=== PATIENT | male | born 2000 | race Caucasian/White ===

== ENCOUNTER 2024-12-24 02:24 | Emergency (ER) | payer OTHER ==
--- OUTSIDE RECORDS SUMMARY | 2024-12-24 02:27 | XMS REPORT | Continuity of Care Document ---
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 Name Role Phone PCP, NO Primary Care Physician Unavailab KEE Munoz Attending Clinician Unavailab NIKKI Orozco Attending Clinician Unavailable JD MORA Attending Clinician Unavailable Problems Condition Name Condition Details Condition Category Status Onset Date Resolution Date Last Treatment Date Treating Clinician Comments Source Hypersensi tivity reaction Hypersensi tivity reaction Problem Active 2017-10 00:00: [address] [facility] (LUF/LI V/SA) Social History Smoking Status Start Date Stop Date Source Never smoker [facility] (LUF/DAVID/SA) Vital Signs Vital Name Observation Time Observation Value Comments S ource Height 2018-08-17 07:02:00 72 in [facility] S t [facility] (LUF/DAVID/SA) Weight Measured 2018-08-17 07:02:00 250 lbs [facility] (LUF/DAVID/SA) BMI (Body Mass Index) 2018-08-17 07:02:00 34.[address] [facility] Body Temperature 2018-08-17 07:02:00 98.3 F [facility] (LUF/DAVID/SA) Pulse Rate 2018-08-17 07:02:00 93 /min [facility] (LUF/ADVID/SA) Respiratory Rate 2018-08-17 07:02:00 18 /min [facility] (LUF/DAVID/SA) O2% BldC Oximetry 2018-08-17 07:02:00 97 % [facility] (LUF/DAVID/SA) BP Systolic 2018-08-17 07:02:00 118 mm[Hg] [facility] (LUF/DAVID/SA) BP Diastolic 2018-08-17 07:02:00 73 mm[Hg] [facility] (LUF/DAVID/SA) Encounters Start Date/Time End Date/Time Encounter Type Admission Type Attending [facility] Facility Care Department Encounter ID Source 2024-11-15 19:26:00 2024-11-15 20:51:00 Emergency ER KEE RODRIGUEZ [facility] [id number] [facility] 2024-11-14 22:21:00 2024-11-15 01:06:00 Emergency ER NIKKI SPANN [facility] [id number] [facility] 2018-08-17 06:53:00 2018-08-17 08:40:00 Inpatient JD MORA [facility], [address] [facility] [place] [address] [facility] [id number] [facility] (LUF/LI V/SA)
[2024-12-24 03:10] LABS: Specific Gravity 1.017 (1.005-1.030); Sqamous Epithelial <5 /HPF (None Seen); Urine Bacteria 20-50 /HPF (<20); Urine Bilirubin 1+ (Negative); Urine Blood 2+ (Negative); Urine Clarity Extremely Turbid (Clear); Urine Color Dark-Yellow (Yellow); Urine Culture Reflex Order REFLEXED; Urine Glucose NEGATIVE (Negative); Urine Ketones 3+ (Negative); Urine Micro Reflex YN NO BILL MICROSCOPIC; Urine Mucus 1+ /HPF (None Seen); Urine Nitrite NEGATIVE (Negative); Urine Protein 1+ (Negative); Urine RBC >50 /HPF (None Seen); Urine Urobilinogen 2+ (Normal); Urine WBC >50 /HPF (<5); Urine WBC Clump Rare /HPF (None Seen); Urine pH 5.5 (5.0-7.0)
[2024-12-24] MEDS ORDERED: CEFTRIAXONE 1000 MG/VIAL ONE (03:14)
[2024-12-24] MEDS ORDERED: ONDANSETRON 4 MG/2 ML VIAL ONE ×2 (03:15→03:18)
[2024-12-24] MEDS ORDERED: ACETAMINOPHEN 500 MG TAB ONE (03:15)
[2024-12-24] MEDS ORDERED: IBUPROFEN 400 MG TAB ONE (03:15)
[2024-12-24] MEDS ORDERED: NA CHLORIDE 0.9% 3,000 ML ONE (03:16)
[2024-12-24] MEDS ORDERED: METRONIDAZOLE 500mg IVPB 500 MG/100 ML BAG IV ONE (03:16)
[2024-12-24] MEDS ORDERED: METOCLOPRAMIDE 10 MG/2mL INJ ONE (03:16)
[2024-12-24 03:55] LABS: Absolute Basophils 0.1 K/uL (0-0.5); Absolute Monocytes 2.4 K/uL (0.1-1.3); Absolute Neutrophil 20.9 K/uL (1.8-8.0); Basophils % 0.2 % (0-1.3); Hematocrit 39.1 % (39.6-49.0); Hemoglobin 13.1 g/dL (13.6-17.9); Lymphocytes % 4.2 % (15.3-44.8); MCH 29.2 pg (27.0-35.0); MCHC 33.4 g/dL (32.0-36.0); MCV 87.4 fL (80-100); MPV 8.6 fL (7.6-11.3); Neutrophils % 85.6 % (41.7-73.7); Nucleated Red Blood Cells % 0.1 % (0-0); Platelets 229 thou/uL (152-406); RBC Red Blood Cell Count 4.48 M/uL (4.33-5.43); Red Cell Distribution Width 12.7 % (12.1-15.2)
[2024-12-24 04:08] LABS: PT Prothrombin Time 16.2 SECONDS (10-13.0); PTT, Activated Partial Thromb 33.4 SECONDS (27.2-37.4); Protime INR 1.45
[2024-12-24 04:15] LABS: Albumin 3.4 g/dL (3.4-5.0); Albumin/Globulin Ratio 0.7 (1.1-1.8); Anion Gap 13.2 mEq/L (5.0-15.0); Bilirubin Total 3.1 mg/dL (0.2-1.0); Globulin 4.7 g/dL (2.3-3.5); Potassium 3.2 mEq/L (3.5-5.1); Protein, Total 8.1 g/dL (6.4-8.2)
[2024-12-24 04:16] LABS: Influenza A Ag Negative; Influenza B Ag Negative; SARS-CoV-2 Antigen Rapid Res Negative (Negative)
[2024-12-24 04:24] LABS: Thyroid Stimulating Hormone 1.93 uIU/mL (0.358-3.740)
[2024-12-24 04:39] LABS: Band Neutrophils 20 % (0-1); Blood Morphology Comment NOT SEEN (NOT SEEN); Differential Total Cells Count 100; Lymphocytes 4 % (15-42); Monocytes 3 % (0-10); Platelet Estimate ADEQ; Reactive Lymphocytes 1 %; Segmented Neutrophils 72 % (40-80)
--- NOTE | 2024-12-24 06:02 | RAD REPORT ---
EXAM: Chest Abdomen Pelvis W Cont CLINICAL HISTORY: abdominal pain COMPARISON: None Available. TECHNIQUE: CT of the chest, abdomen and pelvis performed following the administration of IV contrast. No oral contrast. This exam was performed according to our departmental dose-optimization program, which includes automated exposure control, adjustment of the mA and/or kV according to patient size a nd/or use of iterative reconstruction technique. FINDINGS: Chest: Thyroid: No abnormalities of the visualized thyroid gland. Great Vessels: Great vessels have normal anatomic configuration. Thoracic Aorta: No aneurysm. Contrast bolus is not optimized for assessment of the thoracic aorta. Pulmonary arteries: The main pulmonary artery is not dilated. Contrast bolus is not optimized for ass essment of the pulmonary arteries. Heart: No pericardial effusion. No significant coronary artery calcifications. Lymph Nodes: No enlarged mediastinal, hilar, or axillary lymph nodes identified. Esophagus: No abnormalities of the esophagus identified Other: No additional findings. Lungs: No airspace opacities identified. Pleura: No pleural effusion or pneumothorax. Trachea/Airways: No abnormalities of the visualized trachea or airways. Abdomen: Liver: Normal contour with mild diffuse decreased density and minimal sparing adjacent to the gallbla dder. No intrahepatic mass or biliary dilatation. Gallbladder: No calcified gallstones. Spleen, Pancreas, and Adrenal Glands: Spleen is enlarged. Pancreas and adrenal glands are unremarka ble. Kidneys: No suspicious mass. There is mild left hydronephrosis and minimal hydroureter without ob structing calculus. There may also be some mild right periureteral fat stranding without significant right hydronephrosis. Exam is slightly limited due to motion artifact. Vasculature: The aorta and IVC have normal caliber and position. Stomach: The stomach and duodenum have normal course. Other: No free intraperitoneal air. No free fluid or lymphadenopathy. Pelvis: Bladder: Urinary bladder is unremarkable. Bowel: No dilated loops of large or small bowel.No acute inflammatory changes. Appendix: Normal appendix. Pelvis: No suspicious mass. Bones: No destructive bone lesions identified. IMPRESSION: 1. Mild left hydronephrosis and minimal hydroureter without obstructing calculus. There may also be some mild right periureteral fat stranding without significant right hydronephrosis. Findings could be due to recently passed calculus or infection. Correlate with urinalysis. 2. Hepatic steatosis. 3. Splenomegaly. Electronically signed by: Dee Rincon MD 12/24/2024 05:57 AM CDT RP Due to temporary technical issues with the PACS/Level 3 [employer] reporting system, reports are being mag d by the in-house radiologist without review as a courtesy to ensure prompt reporting the interpreting radiologist is fully responsible for the content of the report. Transcribed Date/Time: 12/24/2024 6:01 AM
--- NOTE | 2024-12-24 07:03 | ER ---
Nurse's Notes [facility] Name: Sanju John Age: 24 yrs Sex: Male : 2000 Arrival Date: 12/24/2024 Time: 02:24 Bed 3 Private MD: Diagnosis: Pyelonephritis acute;Severe sepsis without septic shock Presentation: 12/24 02:47 Chief complaint: Patient states: dehydrated, throbbing headache, sweating, or freezing, vc1 vomiting, body aches, pain with urination. Coronavirus screen: Client denies travel out of the [place] in the last 14 days. chills, fatigue, fever, headache, muscle pain, vomiting. Client presents with at least one sign or symptom that may indicate coronavirus-19. Ebola Screen: Patient negative for fever greater than or equal to 101.5 degrees Fahrenheit, and additional compatible Ebola Virus Disease symptoms Patient denies exposure to infectious person. Patient denies travel to an Ebola-affected area in the 21 days before illness onset. No symptoms or risks identified at this time. Initial Sepsis Screen: Does the patient meet any 2 criteria? Temp <36.0*C (96.8*F)) or > 38.3*C (100.9*F). HR > 90 bpm. Yes Does the patient have a suspected source of infection? No. Patient's initial sepsis screen is negative. Risk Assessment: Do you want to hurt yourself or someone else? Patient reports no desire to harm self or others. Onset of symptoms was December 21, 2024. 02:47 Method Of Arrival: Ambulatory vc1 02:47 Acuity: DUYEN 3 vc1 Triage Assessment: 02:58 General: Appears in no apparent distress. uncomfortable, obese, well developed, vc1 Behavior is calm, cooperative, appropriate for age. Pain: Complains of pain in headache and pain with urination Pain does not radiate. Pain currently is 5 out of 10 on a pain scale. EENT: No deficits noted. No signs and/or symptoms were reported regarding the EENT system. Neuro: Level of Consciousness is awake, alert, obeys commands, Oriented to person, place, time, situation, Appropriate for age. Cardiovascular: Heart tones S1 S2 present Capillary refill < 3 seconds Patient's skin is warm and dry. Rhythm is sinus tachycardia. Respiratory: Airway is patent Respiratory effort is even, unlabored, Respiratory pattern is regular, symmetrical, Breath sounds are clear bilaterally. GI: No deficits noted. No signs and/or symptoms were reported involving the gastrointestinal system. : Urine is cloudy, Reports pain with urination. Derm: Skin is intact, is healthy with good turgor, Skin is dry, Skin is normal, Skin temperature is warm. Musculoskeletal: Circulation, motion, and sensation intact. Range of motion: intact in all extremities. Historical: - Allergies: 02:50 No Known Allergies; vc1 - Home Meds: 02:50 None [Active]; vc1 - PMHx: 02:50 None; vc1 - PSHx: 02:50 None; vc1 - Immunization history:: Client reports having NOT received the Covid vaccine. Flu vaccine is not up to date. - Infectious Disease History:: Denies. - Social history:: Smoking status: Patient denies any tobacco usage or history of. - Family history:: not pertinent. Screenin:50 [facility] ED Fall Risk Assessment (Adult) History of falling in the last 3 months, vc1 including since admission No falls in past 3 months (0 pts) Confusion or Disorientation No (0 pts) Intoxicated or Sedated No (0 pts) Impaired Gait No (0 pts) Mobility Assist Device Used No (0 pt) Altered Elimination Yes (1 pt) Score/Fall Risk Level 0 - 2 = Low Risk Oriented to surroundings, Maintained a safe environment, Educated pt \T\ family on fall prevention, incl call for assistance when getting out of bed. Abuse screen: Denies threats or abuse. Nutritional screening: No deficits noted. Tuberculosis screening: No symptoms or risk factors identified. Assessment: 03:15 General: Appears in no apparent distress. uncomfortable, Behavior is calm, cooperative, dd2 appropriate for age. Pain: Complains of pain in HEAD Pain does not radiate. Pain currently is 6 out of 10 on a pain scale. Neuro: Goodwin Agitation-Sedation Scale (RASS): 0 - Alert and Calm Level of Consciousness is awake, alert, obeys commands, Oriented to person, place, time, situation, Appropriate for age. Cardiovascular: Heart tones S1 S2 present Patient's skin is warm and dry. Respiratory: Airway is patent Respiratory effort is even, unlabored, Respiratory pattern is regular, symmetrical, Breath sounds are clear bilaterally. GI: No deficits noted. No signs and/or symptoms were reported involving the gastrointestinal system. Abdomen is non-distended, obese, Abd is soft and non tender X 4 quads. : Reports burning with urination, pain with urination. EENT: No deficits noted. No signs and/or symptoms were reported regarding the EENT system. Derm: No deficits noted. No signs and/or symptoms reported regarding the dermatologic system. Musculoskeletal: No deficits noted. No signs and/or symptoms reported regarding the musculoskeletal system. Circulation, motion, and sensation intact. Range of motion: intact in all extremities. 04:20 Reassessment: Patient and/or family updated on plan of care and expected duration. Pain ha1 level reassessed. Patient is alert, oriented x 3, equal unlabored respirations, skin warm/dry/pink. Patient states feeling better. Patient states symptoms have improved. 10:00 General: Assumed care of patient at this time. Pt resting with eyes closed, cm10 respirations even and unlabored. Pt remains on continuous cardiac monitoring. No needs at this time. . 10:32 Reassessment: Patient and/or family updated on plan of care and expected duration. Pain cm10 level reassessed. Patient is alert, oriented x 3, equal unlabored respirations, skin warm/dry/pink. Vital Signs: 02:47 BP 116 / 68; Pulse 126; Resp 18; Temp 103.1; Pulse Ox 96% ; Weight 165.11 kg; Height 6 vc1 ft. 2 in. ; Pain 5/10; 05:26 BP 93 / 50; Pulse 97; Resp 17; Temp 99.4(O); Pulse Ox 98% on R/A; dd2 06:11 BP 109 / 53; Pulse 92; Resp 16; Pulse Ox 97% on R/A; dd2 10:00 BP 114 / 66; Pulse 102; Resp 19; Pulse Ox 98% ; cm10 10:29 Temp 98.6(O); cm10 02:47 Body Mass Index 46.73 (165.11 kg, 187.96 cm) vc1 02:47 Pain Scale: Adult vc1 Dutton Coma Score: 03:15 Eye Response: spontaneous(4). Motor Response: obeys commands(6). Verbal Response: dd2 oriented(5). Total: 15. 06:56 Eye Response: spontaneous(4). Motor Response: obeys commands(6). Verbal Response: sp4 oriented(5). Total: 15. ED Course: 02:28 Patient arrived in ED. [id number] 02:34 Haroon Tang MD is Attending Physician. sp4 02:50 Triage completed. vc1 02:50 Arm band placed on right wrist. vc1 03:01 Patient has correct armband on for positive identification. Bed in low position. Call vc1 light in reach. 03:09 Blood Culture Adult (2) Sent. ha1 03:09 CBC with Diff Sent. ha1 03:09 CMP Sent. ha1 03:09 Lactate w/ 2H reflex if indic. Sent. ha1 03:09 Protime (+inr) Sent. ha1 03:09 Ptt, Activated Sent. ha1 03:15 Client placed on continuous cardiac and pulse oximetry monitoring. NIBP monitoring dd2 applied. Door closed. Noise minimized. Pillow given. Verbal reassurance given. 03:15 No provider procedures requiring assistance completed. Initial lab(s) drawn, by ED dd2 staff, sent to lab. Patient maintains SpO2 saturation greater than 95% on room air. 03:25 Inserted saline lock: 20 gauge in left antecubital area, using aseptic technique. Blood mm11 collected. Flushed with 10 mL NS. 03:26 COVID-19 Ag + Flu A+B Ag Sent. mm11 04:40 CT Chest, Abdomen, Pelvis - W/Contrast In Process Unspecified. EDMS 05:10 KRISTIE MICHAEL, RN is Primary Nurse. dd2 07:02 Edin Vallejo is Hospitalizing Provider. sp4 07:24 Primary Nurse role handed off by KRISTIE MICHAEL, ASHLEE bp 07:24 Umesh Garcia, ASHLEE is Primary Nurse. bp 08:17 Attending Physician role handed off by Haroon Tang MD ec2 08:17 Moshe Mcguire MD is Attending Physician. ec2 08:26 initiated transfer to [facility]. bd 10:22 pt accepted in transfer to [facility] rm [address] Guerra admin approval given bd by Pat Walters rn. 10:31 Provided Education on: Need for transfer. Report given to ASHLEE Ceja at [facility]. cm10 10:31 Patient transferred, IV remains in place. cm10 11:03 Report given to Pb with [facility] who assumes care of patient. pt leaving cm10 A\T\Ox4. Administered Medications: 03:35 Drug: Acetaminophen PO 1000 mg PO once Route: PO; dd2 04:05 Follow up: Response: No adverse reaction dd2 03:35 Drug: Ondansetron IVP 8 mg IVP once; over 2 minutes Route: IVP; Site: left antecubital; dd2 03:50 Follow up: Response: No adverse reaction dd2 03:35 Drug: metoCLOPramide IVP 10 mg IVP once; over 1 to 2 minutes Route: IVP; Site: left dd2 antecubital; 03:50 Follow up: Response: No adverse reaction dd2 03:35 Drug: Rocephin - Rocephin (cefTRIAXone) IVPB 1 grams IVPB once over 30 mins; (mix in 50 dd2 mL NS) Route: IVPB; Infused Over: 30 mins; Site: left antecubital; 04:05 Follow up: Response: No adverse reaction; IV Status: Completed infusion; IV Intake: [id number] 03:35 Drug: metroNIDAZOLE IVPB 500 mg 100 ml IVPB at 200 ml/hr once over 30 mins Volume: 100 dd2 ml; Route: IVPB; Rate: 200 ml/hr; Infused Over: 30 mins; Site: left antecubital; 04:05 Follow up: IV Status: Completed infusion; IV Intake: 100ml dd2 03:36 Drug: Ibuprofen PO 800 mg PO once Route: PO; dd2 04:06 Follow up: Response: No adverse reaction dd2 03:36 Drug: NS 0.9% IV (30 ml/kg) 30 ml/kg IV at bolus once; Sepsis Protocol; to be given as dd2 a bolus over 90 minutes Route: IV; Rate: bolus; Site: left antecubital; 05:06 Follow up: IV Status: Completed infusion; IV Intake: 5000ml dd2 Medication: 02:51 VIS not applicable for this client. vc1 Intake: 04:05 IV: 100ml; Total: 100ml. dd2 04:05 IV: 50ml; Total: 150ml. dd2 05:06 IV: 5000ml; Total: 5150ml. dd2 Outcome: 07:03 Decision to Hospitalize by Provider. sp4 09:48 ER care complete, transfer ordered by . ec2 11:02 Transferred by ground [facility] . to [facility], [facility], Transfer cm10 form completed. 11:02 Condition: stable 11:02 Instructed on the need for transfer, 11:03 Patient left the ED. cm10 Signatures: Dispatcher [employer] EDStephanie Hollins Brian, RN RN Lorene Ovalle j6 Brittany Connell RN RN vc1 Shawna Hewitt RN RN ha1 Haroon Tang MD MD sp4 Rody Madrigal RN RN cm10 Moshe Mcguire MD MD ec2 KRISTIE MICHAEL RN RN dd2 alem walden mm11
--- NOTE | 2024-12-24 07:03 | EDPHYS ---
Physician Documentation [facility] Name: Sanju John Age: 24 yrs Sex: Male : 2000 Arrival Date: 12/24/2024 Time: 02:24 Bed 3 Private MD: ED Physician Moshe Mcguire HPI: 12/24 02:35 This 24 yrs old Male presents to ER via Unassigned with complaints of Pain sp4 With Urination, BODY ACHES, HEMATURIA. 06:56 24-year-old male presents with 3 days of fever, increased thirst, burning on urination, sp4 pelvic pain, urinary urgency and vomiting.. No prior medical history. Historical: - Allergies: 02:50 No Known Allergies; vc1 - Home Meds: 02:50 None [Active]; vc1 - PMHx: 02:50 None; vc1 - PSHx: 02:50 None; vc1 - Immunization history:: Client reports having NOT received the Covid vaccine. Flu vaccine is not up to date. - Infectious Disease History:: Denies. - Social history:: Smoking status: Patient denies any tobacco usage or history of. - Family history:: not pertinent. ROS: 06:56 Constitutional: Positive fever, positive vomiting, positive pelvic pain, positive sp4 burning with urination 06:56 All other systems are negative, Exam: 06:56 Constitutional: This is a well developed, well nourished patient who is awake, alert, sp4 and in no acute distress. Head/Face: Normocephalic, atraumatic. Eyes: Pupils equal round and reactive to light, extra-ocular motions intact. Lids and lashes normal. Conjunctiva and sclera are not injected. Cornea within normal limits. Periorbital areas with no swelling, redness, or edema. ENT: Nares patent. No nasal discharge, no septal abnormalities noted. Tympanic membranes are normal and external auditory canals are clear. Oropharynx with no redness, swelling, or masses, exudates, or evidence of obstruction, uvula midline. Mucous membranes moist. Neck: Trachea midline, no thyromegaly or masses palpated, and no cervical lymphadenopathy. Supple, full range of motion without nuchal rigidity, or vertebral point tenderness. Chest/axilla: Normal chest wall appearance and motion. Nontender with no deformity. No lesions are appreciated. Cardiovascular: Regular rate and rhythm with a normal S1 and S2. No gallops, murmurs, or rubs. Normal PMI, no JVD. No pulse deficits. Respiratory: Lungs have equal breath sounds bilaterally, clear to auscultation and percussion. No rales, rhonchi or wheezes noted. No increased work of breathing, no retractions or nasal flaring. Abdomen/GI: Soft, with normal bowel sounds. No distension or tympany. No guarding or rebound. No evidence of tenderness throughout. Back: No spinal tenderness. No costovertebral tenderness. Skin: Warm, dry with normal turgor. Normal color with no rashes, no lesions, and no evidence of cellulitis. MS/ Extremity: Pulses equal, no cyanosis. Neurovascular intact. Full, normal range of motion. Neuro: Awake and alert, GCS 15, oriented to person, place, time, and situation. Cranial nerves II-XII grossly intact. Motor strength 5/5 in all extremities. Sensory grossly intact. Psych: Awake, alert, with orientation to person, place and time. Behavior, mood, and affect are within normal limits 06:56 ECG was reviewed by the Attending Physician. EKG at 0 331 sinus tachycardia Vital Signs: 02:47 BP 116 / 68; Pulse 126; Resp 18; Temp 103.1; Pulse Ox 96% ; Weight 165.11 kg; Height 6 vc1 ft. 2 in. ; Pain 5/10; 05:26 BP 93 / 50; Pulse 97; Resp 17; Temp 99.4(O); Pulse Ox 98% on R/A; dd2 06:11 BP 109 / 53; Pulse 92; Resp 16; Pulse Ox 97% on R/A; dd2 10:00 BP 114 / 66; Pulse 102; Resp 19; Pulse Ox 98% ; cm10 10:29 Temp 98.6(O); cm10 02:47 Body Mass Index 46.73 (165.11 kg, 187.96 cm) vc1 02:47 Pain Scale: Adult vc1 [place] Coma Score: 03:15 Eye Response: spontaneous(4). Motor Response: obeys commands(6). Verbal Response: dd2 oriented(5). Total: 15. 06:56 Eye Response: spontaneous(4). Motor Response: obeys commands(6). Verbal Response: sp4 oriented(5). Total: 15. MDM: 04:27 Medical Screening Exam initiated sp4 06:58 Differential diagnosis: nonspecific abdominal pain, appendicitis, UTI, prostatitis, sp4 urethritis. Data reviewed: vital signs, nurses notes, old medical records, lab test result(s), radiologic studies, CT scan. Consideration of Admission/Observation Patient was admitted/placed on observation. Escalation of care including admission/observation considered. Management of patient was discussed with the following: Hospitalist: Admission team. ED course: CT - IMPRESSION: 1. Mild left hydronephrosis and minimal hydroureter without obstructing calculus. There may also be some mild right periureteral fat stranding without significant right hydronephrosis. Findings could be due to recently passed calculus or infection. Correlate with urinalysis. 2. Hepatic steatosis. 3. Splenomegaly. Electronically signed by: Dee Rincon MD 12/24/2024 05:57 AM. ED course: Patient presents with fever, leukocytosis, signs of acute pyelonephritis including advanced UTI and left hydronephrosis based on CT. Patient requires 2 days of hospitalization with IV antibiotics for severe sepsis without septic shock associated with left pyelonephritis. Stable for admission to medical floor with telemetry.. 08:22 ED course: Hospitalist voiced concern regarding patient possibly requiring urology for ec2 evaluation, question whether this is necessary as patient has bilateral hydronephrosis, unlikely patient has bilateral stones that had recently passed, I suspect this is all sequela from patient's urinary tract infection. Will attempt transfer however hospitalist agreeable to keeping the patient here pending urology discussion . 09:35 ED course: I discussed with urology at [facility], agree that there is no ec2 intervenable process at this time, they agree to accept the consult and will accept transfer.. 12/24 02:35 Order name: Urinalysis W/Microscopic; Complete Time: 03:53 sp4 12/24 02:55 Order name: Blood Culture Adult (2) sp4 12/24 02:55 Order name: CBC with Diff; Complete Time: 04:47 sp4 12/24 02:55 Order name: CMP; Complete Time: 04:47 sp4 12/24 02:55 Order name: Lactate w/ 2H reflex if indic.; Complete Time: 04:47 sp4 12/24 02:55 Order name: Protime (+inr); Complete Time: 04:47 sp4 12/24 02:55 Order name: Ptt, Activated; Complete Time: 04:47 sp4 12/24 03:05 Order name: TSH; Complete Time: 04:47 sp4 12/24 03:05 Order name: CRP; Complete Time: 04:47 sp4 12/24 03:05 Order name: T4 Free; Complete Time: 04:47 sp4 12/24 03:06 Order name: COVID-19 Ag + Flu A+B Ag; Complete Time: 04:47 sp4 12/24 03:13 Order name: Urine Culture EDMS 12/24 03:20 Order name: Glucose, Ancillary Testing; Complete Time: 03:53 EDMS 12/24 04:03 Order name: Manual Differential; Complete Time: 04:47 EDMS 12/24 03:06 Order name: CT Chest, Abdomen, Pelvis - W/Contrast sp4 12/24 02:55 Order name: Accucheck; Complete Time: 03:09 sp4 12/24 02:55 Order name: Cardiac monitoring; Complete Time: 03:09 sp4 12/24 02:55 Order name: EKG - Nurse/Tech; Complete Time: 03:09 sp4 12/24 02:55 Order name: IV Saline Lock - Large Bore; Complete Time: 03:09 sp4 12/24 02:55 Order name: Labs collected and sent; Complete Time: 03:09 sp4 12/24 02:55 Order name: O2 Per Protocol; Complete Time: 03:09 sp4 12/24 02:55 Order name: O2 Sat Monitoring; Complete Time: 03:09 sp4 12/24 02:55 Order name: Vital Signs; Complete Time: 03:09 sp4 EC:31 Rate is 113 beats/min. Rhythm is regular, Sinus tachycardia. QRS [place] is Normal. [place] sp4 interval is normal. QRS interval is normal. QT interval is normal. No Q waves. T waves are Normal. No ST changes noted. Clinical impression: No evidence of ischemia. Interpreted by me. Reviewed by me. Administered Medications: 03:35 Drug: Acetaminophen PO 1000 mg PO once Route: PO; dd2 04:05 Follow up: Response: No adverse reaction dd2 03:35 Drug: Ondansetron IVP 8 mg IVP once; over 2 minutes Route: IVP; Site: left antecubital; dd2 03:50 Follow up: Response: No adverse reaction dd2 03:35 Drug: metoCLOPramide IVP 10 mg IVP once; over 1 to 2 minutes Route: IVP; Site: left dd2 antecubital; 03:50 Follow up: Response: No adverse reaction dd2 03:35 Drug: Rocephin - Rocephin (cefTRIAXone) IVPB 1 grams IVPB once over 30 mins; (mix in 50 dd2 mL NS) Route: IVPB; Infused Over: 30 mins; Site: left antecubital; 04:05 Follow up: Response: No adverse reaction; IV Status: Completed infusion; IV Intake: [id number] 03:35 Drug: metroNIDAZOLE IVPB 500 mg 100 ml IVPB at 200 ml/hr once over 30 mins Volume: 100 dd2 ml; Route: IVPB; Rate: 200 ml/hr; Infused Over: 30 mins; Site: left antecubital; 04:05 Follow up: IV Status: Completed infusion; IV Intake: 100ml dd2 03:36 Drug: Ibuprofen PO 800 mg PO once Route: PO; dd2 04:06 Follow up: Response: No adverse reaction dd2 03:36 Drug: NS 0.9% IV (30 ml/kg) 30 ml/kg IV at bolus once; Sepsis Protocol; to be given as dd2 a bolus over 90 minutes Route: IV; Rate: bolus; Site: left antecubital; 05:06 Follow up: IV Status: Completed infusion; IV Intake: 5000ml dd2 Disposition Summary: 12/24/24 09:48 Transfer Ordered Notes: Transfer Location: Other [facility] ec2 Reason: Higher level of care ec2 Condition: Stable(12/24/24 09:48) ec2 Problem: new(12/24/24 09:48) ec2 Symptoms: have improved(12/24/24 09:48) ec2 Accepting Physician: transferring doc(12/24/24 11:03) cm10 Diagnosis - Pyelonephritis acute(12/24/24 09:48) ec2 - Severe sepsis without septic shock(12/24/24 09:48) ec2 Forms: - Medication Reconciliation Form ec2 - SBAR form ec2 Critical care time excluding procedures: 07:10 Critical care time: Bedside Care: 36 minutes, Consultation: 12 minutes, Family sp4 Intervention: 12 minutes. Total time: 60 minutes Signatures: Dispatcher [employer] EDMS Brittany Connell RN RN vc1 Haroon Tang MD MD sp4 Rody Madrigal RN RN cm10 Moshe Mcguire MD MD ec2 KRISTIE MICHAEL RN RN dd2 Corrections: (The following items were deleted from the chart) 03:05 03:05 THYROID STIMULAT HORMONE+C.LAB.BRZ ordered. EDMS EDMS 03:05 03:05 C-REACTIVE PROTEIN+C.LAB.BRZ ordered. EDMS EDMS 03:05 03:05 T4 FREE+C.LAB.BRZ ordered. EDMS EDMS 03:08 02:58 Chest Single View+RAD.RAD.BRZ ordered. EDMS EDMS 09:47 07:03 Inpatient Admission sp4 ec2 09:47 07:03 Edin Vallejo sp4 ec2 09:47 07:03 Telemetry/MedSurg (Inpatient) sp4 ec2 09:47 07:03 Stable sp4 ec2 09:47 07:03 new sp4 ec2 09:47 07:03 have improved sp4 ec2 09:47 07:03 Standard sp4 ec2 09:47 07:03 sp4 ec2 09:47 07:03 Pyelonephritis acute sp4 ec2 09:47 07:03 Severe sepsis without septic shock sp4 ec2 09:47 07:03 Acute left pyelonephritis sp4 ec2 11:03 09:48 transferring doc ec2 cm10
[2024-12-24 11:41] VITALS: BP 114/66; O2SAT 98
[2024-12-24 11:42] VITALS: TEMP 98.6
--- NOTE | 2024-12-24 12:00 | EKG ---
Test Date: 2024-12-24 Test Time: 03:31:23 Filtration Supervisor: DANITA MEASUREMENT RESULTS: Intervals: Rate: 113 MA: 138 QRSD: 82 QT: 316 QTc: 433 [place]: P: 5 MA: 138 QRS: 41 T: 10 INTERPRETIVE STATEMENTS: Sinus tachycardia Otherwise normal ECG No previous ECG available for comparison Electronically Signed On 12-24-24 11:59:15 CDT by Nathaniel Hammer
== END 2024-12-24 11:03 | disposition short-term general hospital (02) ==
LOC: ER 02:24
DX: N10 Acute pyelonephritis (principal); R65.20 Severe sepsis without septic shock; Z11.52 Encounter for screening for COVID-19
CPT/HCPCS: 96365; 96367; 96368; 93005; 87040 ×2; 87088; 85025; 81001; 87086; 36415; 85610; 82947; 83605; 85730; 84443; 84439; 80053; 86140; 71260; 74177; 96375; 99285; 87428; Q9967; J2765; J2405 ×2; J0696; 87077; 87186; J7030